=== PATIENT | male | born 1970 ===

== ENCOUNTER 2018-04-20 06:44 | Day surgery (SDC) | payer OTHER ==
[2018-02-15 15:13] VITALS: BMI 30.8
[2018-04-20] MEDS ORDERED: Tetracaine 0.5% Ophth (OR ONLY) ONE (07:25)
[2018-04-20] MEDS ORDERED: Tobramycin/Dexamethasone OPHT OINT ONE (07:25)
[2018-04-20] MEDS ORDERED: MethylPREDNISolone 40 mg Vial ONE (07:26)
[2018-04-20] MEDS ORDERED: Gentamicin 80 mg/2mL Inj. ONE (07:26)
[2018-04-20] MEDS ORDERED: Lidocaine 2% MPF (5 ml) Inj ONE (07:32)
[2018-04-20] MEDS ORDERED: Phenylephrine 2.5% Opht Soln OD SCH (07:45)
[2018-04-20] MEDS ORDERED: Lactated Ringer's 500 ML IV ONE ×2 (07:46→08:00)
[2018-04-20] MEDS ORDERED: Midazolam 2 MG/2 ML VIAL ONE (09:19)
[2018-04-20] MEDS ORDERED: Propofol 10 mg/ml Inj (20 ML) ONE (09:19)
[2018-04-20] MEDS ORDERED: WATER FOR INJECTION OD ONE (09:30)
[2018-04-20] MEDS ORDERED: MITOMYCIN OD ONE (09:30)
[2018-04-20 10:32] VITALS: RESP 20; O2SAT 99
[2018-04-20 12:16] VITALS: BP 133/84; PULSE 77; TEMP 97.2
--- NOTE | 2018-04-21 19:36 | OP ---
PROCEDURE DATE: 04/20/2018 PREOPERATIVE DIAGNOSIS: Progressive pterygium, right eye. POSTOPERATIVE DIAGNOSIS: Progressive pterygium, right eye. OPERATIVE PROCEDURE: Pterygium excision with autograft, right eye. SURGEON: Raul See MD TYPE OF ANESTHESIA: Retrobulbar block. COMPLICATIONS: None. ESTIMATED BLOOD LOSS: 0.5 mL. DESCRIPTION OF PROCEDURE: The patient was brought to the operating room and properly identified. Anesthesia staff gave IV sedation and retrobulbar block was given to the right eye with no complications. The patient was then prepped and draped in the usual sterile fashion sitting superiorly. Pterygium was noted to be growing on to the cornea. The pterygium was then injected with lidocaine with epinephrine and carefully removed with 0.12 and Genesis scissors. Once it was removed, was used to smooth out the corneal portion. Hemostasis was maintained with cautery. Mitomycin was placed on the bare sclera for one and a half minutes and then washed with BSS solution. Once that was complete, an autograft was cut from the superior conjunctiva and glued into place using Tisseel glue. Subconjunctival antibiotics was given. The eye was covered with soft patch and shield. The patient was returned to the recovery room in stable condition. Raul See MD
== END 2018-04-20 11:00 | disposition home or self-care (01) ==
LOC: C.SDS 06:44
PROVIDERS: ATTEND Ophthalmology
DX: H11.001 Unspecified pterygium of right eye (principal); E78.5 Hyperlipidemia, unspecified; Z90.89 Acquired absence of other organs

== ENCOUNTER 2018-07-20 07:16 | Day surgery (SDC) | payer OTHER ==
[2018-07-13 13:05] VITALS: BMI 28.2
[~2018-07-20 07:16] MED LIST: Phenylephrine 2.5% Opht Soln OS SCH
[2018-07-20] MEDS ORDERED: Lactated Ringer's 1,000 ML IV ONE (07:53)
[2018-07-20] MEDS ORDERED: Midazolam 2 MG/2 ML VIAL ONE (08:38)
[2018-07-20] MEDS ORDERED: Propofol 10 mg/ml Inj (20 ML) ONE (08:39)
[2018-07-20] MEDS ORDERED: Lactated Ringer's 500 ML IV ONE (09:14)
[2018-07-20] MEDS ORDERED: Tetracaine 0.5% Ophth (OR ONLY) ONE (09:27)
[2018-07-20] MEDS ORDERED: Carbachol 0.01% IO ONE (09:27)
[2018-07-20] MEDS ORDERED: Lidocaine 2% MPF (5 ml) Inj ONE (09:28)
[2018-07-20] MEDS ORDERED: MethylPREDNISolone 40 mg Vial ONE (09:28)
[2018-07-20] MEDS ORDERED: Tobramycin/Dexamethasone OPHT OINT ONE (09:28)
[2018-07-20] MEDS ORDERED: Hyaluronidase Human, Recombi 150 U/ML VIAL ONE (09:28)
[2018-07-20] MEDS ORDERED: Gentamicin 80 mg/2mL Inj. ONE (09:28)
[2018-07-20 09:51] VITALS: PULSE 81
[2018-07-20 10:31] VITALS: BP 129/73; RESP 16; TEMP 97.7; O2SAT 99
--- NOTE | 2018-07-20 19:45 | OP ---
PROCEDURE DATE: 07/20/2018 PREOPERATIVE DIAGNOSIS: Peripheral progressive pterygium, left eye. POSTOPERATIVE DIAGNOSIS: Peripheral progressive pterygium, left eye. PROCEDURE: Excision of pterygium with autograft, left eye. SURGEON: Raul See MD TYPE OF ANESTHESIA: Retrobulbar block. COMPLICATIONS: None. ESTIMATED BLOOD LOSS: 0.5 mL. DESCRIPTION OF PROCEDURE: The patient was brought to the operating room and properly identified. Anesthesia staff gave IV sedation. The patient was given retrobulbar block to the left eye with no complications. The patient was prepped and draped in the usual sterile fashion. Proceeding superiorly, pterygium was noted to be going onto the cornea nasally. This was injected with lidocaine with epinephrine. This was removed with 0.12 and Genesis scissors. Once it was removed, a finesse paula was used for corneal portion. Hemostasis was maintained with cautery. Mitomycin C 0.02% was placed on the bare sclera for one and half minutes and then washed with 3 large syringes of BSS. Once that was complete, an autograft was cut from the superior portion of the conjunctiva and glued into place over the bare sclera. Antibiotics and steroids are given. The eye was covered with soft patch and shield. The patient was returned to the recovery room in stable condition. Raul See MD
== END 2018-07-20 10:22 | disposition home or self-care (01) ==
LOC: C.SDS 07:16
PROVIDERS: ATTEND Ophthalmology
DX: H11.052 Peripheral pterygium, progressive, left eye (principal)
CPT/HCPCS: 65426; 88304; J1580; J2250; J2704; J2920; J3470; J7120